=== PATIENT | male | born 1955 | race Caucasian/White ===

== ENCOUNTER 2022-03-22 09:29 | Observation (INO) ==
[2022-03-22 10:36] LABS: Basophils % 0.2 %; Eosinophils # 0.1 K/mcL (0.0-0.6); Eosinophils % 0.6 %; Hematocrit 45.7 % (37.5-50.1); Hemoglobin 15.5 g/dL (12.9-16.9); Immature Granulocytes % 0.7 % (0-4); Lymphocytes # 2.3 K/mcL (0.6-4.6); Mean Corpuscular HGB Conc 33.9 g/dL (31.6-35.5); Mean Corpuscular Hemoglobin 33.6 pg (28.0-33.3); Mean Corpuscular Volume 99.1 fL (83.0-100.0); Mean Platelet Volume 11.8 fL (9.4-12.4); Monocytes # 0.9 K/mcL (0.0-1.3); Monocytes % 9.4 %; Platelet Count 212 K/mcL (140-400); Red Blood Count 4.61 M/mcL (4.19-5.50); Red Cell Distribution Width 12.2 % (11.5-14.5); Segmented Neutrophils % 64.1 %; White Blood Count 9.4 K/mcL (4.3-11.1)
[2022-03-22 10:51] LABS: Alanine Aminotransferase 42 Units/L (7-52); Albumin 3.9 g/dL (3.5-5.7); Albumin/Globulin Ratio 1.7 (1.1-2.2); Alkaline Phosphatase 80 Units/L (34-104); Aspartate Amino Transferase 20 Units/L (13-39); BUN/Creatinine Ratio 14 (6-26); Bilirubin,Direct 0.2 mg/dL (0.0-0.2); Bilirubin,Indirect 0.7 mg/dL (0.0-1.0); Bilirubin,Total 0.9 mg/dL (0.3-1.0); Blood Urea Nitrogen 29 mg/dL (8-23); Calcium 8.9 mg/dL (8.6-10.3); Carbon Dioxide 23 mEq/L (23-29); Chloride 107 mEq/L (98-107); Ethanol < 10 mg/dL (Less than 10); Globulin 2.3 g/dL (2.4-3.5); Glucose 158 mg/dL (70-105); Osmolality,Calculated 293 (280-300); Potassium 3.6 mEq/L (3.5-5.1); Sodium 137 mEq/L (136-145); Total Protein 6.2 g/dL (6.4-8.9); Troponin I 0.03 ng/mL (< 0.04)
[2022-03-22] MEDS ORDERED: Iopamidol - 370 500 ML MLS IVP ONE ×2 (10:59→13:39)
[2022-03-22 11:19] LABS: Lipase 121 Units/L (11-82); Magnesium 2.3 mg/dL (1.6-2.6); Phosphorous 3.3 mg/dL (2.7-4.5)
[2022-03-22 11:54] LABS: Bilirubin,Urine Negative (Negative); Blood,Urine Negative (Negative); Clarity,Urine Clear (Clear); Color,Urine Yellow (Yellow); Glucose,Urine (UA) Normal (Normal); Hyaline Casts,Urine Few per lpf (None Seen); Ketones,Urine Negative (Negative); Leukocyte Esterase,Urine Trace (Negative); Mucus,Urine Few per lpf (None-Few); Nitrite,Urine Negative (Negative); Protein,Urine Trace mg/dL (Neg-Trace); RBC,Urine 0-3 per hpf (0-3); Specific Gravity,Urine > 1.030 (1.010-1.025); Urobilinogen,Urine Normal (Normal); WBC,Urine 0-3 per hpf (0-3)
[2022-03-22 12:15] LABS: Amphetamine Screen,Urine Negative ng/mL (Cutoff=1000); Barbiturate Screen,Urine Negative ng/mL (Cutoff=200); Benzodiazepines Screen,Urine Negative ng/mL (Cutoff=200); Cannabinoid Screen,Urine Negative ng/mL (Cutoff = 50); Cocaine Screen,Urine Negative ng/mL (Cutoff= 300); Opiate Screen,Urine Negative ng/mL (Cutoff=300); Phencyclidine Screen,Urine Negative ng/mL (Cutoff=25)
[2022-03-22] MEDS ORDERED: Aspirin 325 MG TABLET PO ONE (13:37)
[2022-03-22] MEDS ORDERED: 0.9 % Sodium Chloride 1,000 ML IVC SCH (13:45)
[2022-03-22] MEDS ORDERED: *HR* LORazepam 2 MG/ML VIAL IVP ONE (14:36)
[2022-03-22] MEDS ORDERED: Gabapentin 100 MG CAPSULE PO PRN (15:16)
[2022-03-22] MEDS: *HR* Heparin 5,000 UNIT/ML VIAL SQ SCH (18:07)
[2022-03-23 01:56] LABS: Prothrombin Time 10.7 Seconds (9.4-12.1)
[2022-03-23 02:02] LABS: Albumin 3.1 g/dL (3.5-5.7); Albumin/Globulin Ratio 1.7 (1.1-2.2); Bilirubin,Total 0.5 mg/dL (0.3-1.0); Calcium 8.2 mg/dL (8.6-10.3); Chol/HDL Ratio 4.6 (0-4.9); Globulin 1.8 g/dL (2.4-3.5); Potassium 4.1 mEq/L (3.5-5.1); Total Protein 4.9 g/dL (6.4-8.9)
[2022-03-23 02:18] LABS: Estimated Average Glucose 114 mg/dl; Hemoglobin A1C 5.6 %
[2022-03-23] MEDS ORDERED: Fluticasone Propionate Nasal 50 MCG/SPRAY BOTTLE NS PRN (07:51)
[2022-03-23] MEDS: DilTIAZem CD (24hr) 120 MG CAP.ER.24H PO SCH (08:24)
[2022-03-23] MEDS: Cholecalciferol (D-3) 1,000 UNIT (25MCG) TABLET PO SCH (08:24)
[2022-03-23] MEDS: Famotidine 20 MG TABLET PO SCH (08:24)
[2022-03-23] MEDS: Aspirin Enteric Coated 81 MG Tablet PO SCH (08:25)
[2022-03-23] MEDS: Loratadine 10 MG TABLET PO SCH (08:25)
[2022-03-23] MEDS ORDERED: SOLRIAMFETOL HCL 150 MG PO SCH (09:00)
[2022-03-23] MEDS: *HR* Heparin 5,000 UNIT/ML VIAL SQ SCH ×2 (17:11→19:13)
[2022-03-24 04:29] VITALS: O2SAT 95
[2022-03-24] MEDS: *HR* Heparin 5,000 UNIT/ML VIAL SQ SCH (05:33)
[2022-03-24] MEDS: Famotidine 20 MG TABLET PO SCH (08:07)
[2022-03-24] MEDS: Loratadine 10 MG TABLET PO SCH (08:07)
[2022-03-24] MEDS: DilTIAZem CD (24hr) 120 MG CAP.ER.24H PO SCH (08:07)
[2022-03-24] MEDS: Aspirin Enteric Coated 81 MG Tablet PO SCH (08:07)
[2022-03-24] MEDS: Cholecalciferol (D-3) 1,000 UNIT (25MCG) TABLET PO SCH (08:07)
[2022-03-24] MEDS ORDERED: 0.9 % Sodium Chloride 1,000 ML IVC SCH (08:30)
[2022-03-24 10:32] VITALS: BP 133/86; PULSE 76; TEMP 98
[2022-03-24 11:03] LABS: Calcium 8.6 mg/dL (8.6-10.3); Potassium 3.9 mEq/L (3.5-5.1)
== END 2022-03-24 13:55 | disposition home or self-care (01) ==
LOC: 3BNU 09:29 → EMEROOARM 09:29 → SUATTDRO 13:51 → 3BNU 19:25
PROVIDERS: ADMIT Internal Medicine; ATTEND Registered Nurse